=== PATIENT | female | born 1995 | race Caucasian/White ===

== ENCOUNTER 2016-04-22 21:57 | Emergency (ER) | payer OTHER ==
[~2016-04-22] VITALS: Ht 157.5 cm; Wt 69.4 kg
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
[2016-04-22] MEDS ORDERED: CYCL10TA2 PO (23:07)
[2016-04-22 23:16] VITALS: BP 119/66
== END 2016-04-22 23:28 | disposition home or self-care (01) ==
LOC: ER 21:57
DX: S00.83XA Contusion of other part of head, initial encounter (principal); V49.49XA Driver injured in collision with other motor vehicles in traffic accident, initial encounter; Y93.89 Activity, other specified; Y92.89 Other specified places as the place of occurrence of the external cause; Y99.8 Other external cause status
CPT/HCPCS: 70450; 72125; 81025; 99284-25